=== PATIENT | male | born 1960 | race Caucasian/White ===

== ENCOUNTER 2021-09-05 13:57 | Outpatient (RCR) | payer BC, SELFPAY | END 2021-10-23 16:00 | disposition home or self-care (01) | LOC: HO.WCC 13:57 | PROVIDERS: PCP Internal Medicine; Visit Provider Physician Assistant | DX: I87.311 Chronic venous hypertension (idiopathic) with ulcer of right lower extremity (principal); L97.312 Non-pressure chronic ulcer of right ankle with fat layer exposed; Z87.891 Personal history of nicotine dependence | CPT/HCPCS: 11042; 29581; 97597; 99212 ==

== ENCOUNTER 2022-01-26 13:40 | Outpatient (RCR) | payer BC, SELFPAY | END 2022-05-21 14:40 | disposition home or self-care (01) | LOC: HO.WCC 13:40 | PROVIDERS: PCP Nurse Practitioner; Visit Provider Surgery | DX: Z09 Encounter for follow-up examination after completed treatment for conditions other than malignant neoplasm (principal); I87.322 Chronic venous hypertension (idiopathic) with inflammation of left lower extremity; Z87.891 Personal history of nicotine dependence; Z87.2 Personal history of diseases of the skin and subcutaneous tissue | CPT/HCPCS: 11042; 29580; 29581; 99212; 99213 ==

== ENCOUNTER 2023-08-09 13:51 | Outpatient (RCR) | payer BC, OTHER, SELFPAY | END 2023-11-26 17:00 | disposition home or self-care (01) | LOC: HO.WCC 13:51 | PROVIDERS: Visit Provider Physician Assistant | DX: L97.312 Non-pressure chronic ulcer of right ankle with fat layer exposed (principal); I87.2 Venous insufficiency (chronic) (peripheral); R60.0 Localized edema; Z87.891 Personal history of nicotine dependence | CPT/HCPCS: 11042; 17250; 29581; 99212 ==

== ENCOUNTER 2023-09-14 12:52 | Outpatient (REF) | payer BC, SELFPAY ==
--- NOTE | ~2023-09-14 | US_ITS ---
EXAMINATION: RIGHT and LEFT LOWER EXTREMITY VENOUS ULTRASOUND (Reflux Exam) CLINICAL INDICATION: Venous insufficiency COMPARISON: None. TECHNIQUE: Color flow triplex imaging and compression Doppler was performed to evaluate both the deep and the superficial systems bilaterally. To evaluate the superficial system, the examination was performed in the upright position. Color-flow Doppler ultrasound and compression ultrasound were utilized. In addition, maneuvers were utilized to demonstrate reflux. FINDINGS: 1. DEEP VENOUS ULTRASOUND OF THE RIGHT LOWER EXTREMITY: Respiratory variation, normal compression and augmented flow are noted in the right common femoral vein, right femoral vein, as well as the right popliteal vein and there is no evidence of deep venous thrombosis at these locations. There is no evidence of reflux in the deep system in either the common femoral vein or the popliteal vein. . There is no evidence of a Coppola's cyst. 2. SUPERFICIAL ULTRASOUND WITH DOPPLER OF RIGHT LOWER EXTREMITY: The right great saphenous vein at the saphenofemoral junction measures 10 mm, at the mid thigh 1 mm, gkkqo-lht-wimz 1 mm, kumga-woq-vbsa 4 mm, at mid calf 2 mm and at the ankle measures 2 mm. There is reflux demonstrated in the right great saphenous vein. Accessory vein laterally measuring 2 mm without reflux. The right small saphenous vein measures 3 mm and shows no reflux. Multiple perforators with reflux. Multiple varicose veins with reflux. Right groin lymph node measuring 3.9 x 0.9 x 3.2 cm. 3. DEEP VENOUS ULTRASOUND OF THE LEFT LOWER EXTREMITY: Respiratory variation, normal compression and augmented flow are noted in the left common femoral vein, femoral vein as well as the left popliteal vein and there is no evidence of deep venous thrombosis at these locations. There is no evidence of reflux in the deep system in either the common femoral vein or the popliteal vein. . There is no evidence of a Coppola's cyst. 4. SUPERFICIAL ULTRASOUND WITH DOPPLER OF LEFT LOWER EXTREMITY: Left great saphenous vein at the saphenofemoral junction measures 8 mm, at the mid thigh 1 mm, ebxzz-tyc-ptvm 1 mm, visym-bvp-xejb 5 mm, at mid calf 1 mm and at the ankle measures 2 mm. There is reflux demonstrated in the left great saphenous vein. Accessory vein noted medially measuring up to 3 mm without reflux and laterally measuring 4 mm with reflux. The left small saphenous vein measures 2 mm and shows no reflux. Multiple perforators without reflux. Multiple varicose veins with reflux. Left groin lymph node measuring 2.0 x 0.9 x 3.1 cm. US/US venous duplex LE BI IMPRESSION: 1. RIGHT: No reflux of the deep system. Reflux of the superficial system. Perforators with reflux. Varicose veins with reflux. Right groin lymph node measuring 3.9 x 0.9 x 3.2 cm. 2. LEFT: No reflux of the deep system. Reflux of the superficial system. Perforators without reflux. Varicose veins with reflux. Left groin lymph node measuring 2.0 x 0.9 x 3.1 cm.
== END 2023-09-14 12:53 | disposition home or self-care (01) ==
LOC: HO.US 12:52
PROVIDERS: PCP Nurse Practitioner; Visit Provider Physician Assistant
DX: I87.2 Venous insufficiency (chronic) (peripheral) (principal)
CPT/HCPCS: 93970

== ENCOUNTER 2023-10-25 13:21 | Outpatient (REF) | payer BC, SELFPAY ==
--- NOTE | ~2023-10-25 | IR_ITS ---
PROCEDURES: Radiofrequency ablation right GSV Ultrasound-guided foam sclerotherapy right lower extremity varicose veins PREPROCEDURE DIAGNOSIS:Varicose veins POST PROCEDURE DIAGNOSIS:Same INDICATIONS: Symptomatic varicose veins bilaterally lower extremities. Symptoms include venous ulcer, swelling, pain PROCEDURE: Informed consent was obtained following discussion of the risks and benefits of the procedure with the patient. The patient was placed supine on the ultrasound procedure table. Preliminary ultrasound demonstrates evidence of prior above the knee GSV ablation. There is a remnant portion of the GSV in the calf and lower thigh which is dilated and has reflux in concordance with prior imaging. There are numerous branch varicosities of the GSV in the calf. Sites were selected on the right leg below the knee. The right leg was sterilely prepped and draped. 1% lidocaine was administered for local anesthesia. The GSV was accessed with a 21-gauge micropuncture needle under direct ultrasound guidance with permanent recordings. The needle was exchanged for a 7 Cypriot sheath over a 0.018 guidewire. A 7 Cypriot Red[employer] Systemstronic RF ablation catheter was then advanced centrally to the uppermost portion of the remnant GSV. Ablation was performed with pull back technique utilizing 2 cycles. Then, foam was prepared by the cartridge loading operator using Tessari method utilizing 1% sodium tetradecyl and room air in a 1:4 ratio. The varicose veins in the right lower extremity were then treated using the foam mixture and delivered via a 23-gauge needle under direct ultrasound guidance with permanent recordings. A total of 6 mL of foam was delivered via a single access. The treated veins included multiple tributory varicose veins communicating to the GSV. Post intervention images demonstrate successful treatment of the targeted veins. The accesses were removed. Hemostasis was achieved with manual compression. A gauze wrap was applied the treated extremity. The patient tolerated residual immediate complications. IR/IR ablation therapy endo w/chanel IMPRESSION: RF ablation right GSV Ultrasound-guided foam sclerotherapy right lower extremity varicose veins Plan: Into space staged intervention of left lower extremity varicose veins
== END 2023-10-25 13:22 | disposition home or self-care (01) ==
LOC: HO.US 13:21
PROVIDERS: PCP Nurse Practitioner Primary Care; Visit Provider Student in an Organized Health Care Education/Training Program
DX: I83.018 Varicose veins of right lower extremity with ulcer other part of lower leg (principal); L97.819 Non-pressure chronic ulcer of other part of right lower leg with unspecified severity
CPT/HCPCS: 36470; 36475; 36482; C1888

== ENCOUNTER → 2023-10-25 14:30 | Outpatient (BNV) | payer BC, SELFPAY | PROVIDERS: PCP Nurse Practitioner; Visit Provider Student in an Organized Health Care Education/Training Program | DX: I83.11 Varicose veins of right lower extremity with inflammation (principal) | CPT/HCPCS: 36475; 36482 ==

== ENCOUNTER 2023-11-03 12:15 | Outpatient (REF) | payer BC, SELFPAY ==
--- NOTE | ~2023-11-03 | IR_ITS ---
PROCEDURE: Radiofrequency ablation LEFT GSV PREPROCEDURE DIAGNOSIS:Varicose veins POST PROCEDURE DIAGNOSIS:Same INDICATIONS: Symptomatic varicose veins bilaterally lower extremities. Symptoms include venous ulcer, swelling, pain PROCEDURE: Informed consent was obtained following discussion of the risks and benefits of the procedure with the patient. The patient was placed supine on the ultrasound procedure table. Preliminary ultrasound demonstrates dilated GSV. The left leg was sterilely prepped and draped. 1% lidocaine was administered for local anesthesia. The GSV was accessed with a 21-gauge micropuncture needle under direct ultrasound guidance with permanent recordings. The needle was exchanged for a 7 Dutch sheath over a 0.018 guidewire. A 7 Dutch [employer]onic RF ablation catheter was then advanced centrally and positioned 3 cm from the saphenofemoral junction. Ablation was performed with pull back technique utilizing 6 cycles. The catheter and sheath were removed and hemostasis was readily achieved and a sterile dressing was applied. A gauze wrap was applied the treated extremity. The patient tolerated the procedure well with no immediate complications. IR/IR ablation therapy endovenous IMPRESSION: RF ablation LEFT GSV Plan: Follow-up ultrasound in 5-7 days. Follow-up clinic in 3 months.
== END 2023-11-03 12:16 | disposition home or self-care (01) ==
LOC: HO.US 12:15
PROVIDERS: PCP Nurse Practitioner Primary Care; Visit Provider Student in an Organized Health Care Education/Training Program
DX: I83.028 Varicose veins of left lower extremity with ulcer other part of lower leg (principal); L97.929 Non-pressure chronic ulcer of unspecified part of left lower leg with unspecified severity
CPT/HCPCS: 36475; 36478; C1888

== ENCOUNTER → 2023-11-03 12:30 | Outpatient (BNV) | payer BC, SELFPAY | PROVIDERS: PCP Nurse Practitioner Primary Care; Visit Provider Student in an Organized Health Care Education/Training Program | DX: I83.12 Varicose veins of left lower extremity with inflammation (principal) | CPT/HCPCS: 36475; 36478 ==

== ENCOUNTER 2023-11-09 13:40 | Outpatient (REF) | payer BC, SELFPAY ==
--- NOTE | ~2023-11-09 | US_ITS ---
EXAMINATION: US VENOUS ULTRASOUND WITH DOPPLER LOWER EXTREMITY, LEFT CLINICAL INFORMATION: Post RF ablation COMPARISON: Previous exam August 2023 TECHNIQUE: Ultrasound of the deep veins is performed from the hip to the calf with compression sonography and color and pulse Doppler assessment. Spectral analysis with color-flow imaging is performed. FINDINGS: There is normal venous compression and respiratory variation and augmented flow. The visualized common femoral vein, superficial femoral vein, profunda femoral vein, popliteal vein, and the trifurcation region shows no evidence of deep venous thrombosis. There is echogenic material seen in the greater saphenous vein post RF ablation. This is 4.5 cm from the saphenofemoral junction. Greater saphenous vein is closed. There is no significant popliteal fossa cyst. US/US venous duplex LE LT IMPRESSION: No DVT demonstrated in the left lower extremity.
== END 2023-11-09 13:41 | disposition home or self-care (01) ==
LOC: HO.US 13:40
PROVIDERS: Visit Provider Radiology Vascular & Interventional Radiology
DX: Z98.890 Other specified postprocedural states (principal)
CPT/HCPCS: 93971

== ENCOUNTER 2024-05-16 13:46 | Outpatient (RCR) | payer OTHER, SELFPAY | END 2024-07-07 10:44 | disposition home or self-care (01) | LOC: HO.WCC 13:46 | PROVIDERS: PCP Nurse Practitioner Primary Care; Visit Provider Physician Assistant | DX: Z09 Encounter for follow-up examination after completed treatment for conditions other than malignant neoplasm (principal); I87.2 Venous insufficiency (chronic) (peripheral); Z87.891 Personal history of nicotine dependence; Z87.2 Personal history of diseases of the skin and subcutaneous tissue | CPT/HCPCS: 11042; 97597; 99212 ==